=== PATIENT | female | born 1975 | race Caucasian/White ===

== ENCOUNTER 2019-11-15 19:13 | Emergency (ER) | payer OTHER ==
--- NOTE | 2019-11-15 20:53 | ER Document Report ---
ED Medical Screen (RME) - General Chief Complaint: Leg Pain Stated Complaint: LEFT CALF INJURY/PAIN Time Seen by Provider: 11/15/19 20:50 Primary Care Provider: NICHOLE BENITO MD [Primary Care Provider] - Follow up as needed TRAVEL OUTSIDE OF THE [place] IN LAST 30 DAYS: No - HPI Notes: 11/15/19 20:52 Patient is a 44-year-old female no significant past medical history presents complaining of left calf pain that began suddenly around 6:30 PM today. Patient states that she was in a car for [address] and 10 hours back and when she started to try to walk this evening she felt a pop in her calf. I have treated and performed a rapid initial assessment of this patient. A comprehensive ED assessment and evaluation of the patient, analysis of test results and completion of medical decision making process will be conducted by additional ED providers. PHYSICAL EXAMINATION: GENERAL: Well-appearing, well-nourished and in no acute distress. A&Ox4. Answers questions appropriately. Left leg: There is significant tenderness noted to palpation of the calf. No obvious bruising or redness noted. - Related Data Allergies/Adverse Reactions: No Known Allergies Allergy (Verified 10/14/14 02:21) Past Medical History - Past Medical History Cardiac Medical History: Denies: Hx Coronary Artery Disease, Hx Heart Attack, Hx Hypertension Pulmonary Medical History: Reports: Hx Bronchitis, Hx Pneumonia Denies: Hx Asthma, Hx COPD Neurological Medical History: Denies: Hx Cerebrovascular Accident, Hx Seizures Musculoskeltal Medical History: Denies Hx Arthritis Past Surgical History: Denies: Hx Hysterectomy, Hx Pacemaker - Immunizations Hx Diphtheria, Pertussis, Tetanus Vaccination: Yes - more 10 years Physical Exam - Vital signs Vitals: Temp Pulse Resp BP Pulse Ox 98.2 F 100 16 139/94 H 99 11/15/19 19:27 11/15/19 19:27 11/15/19 19:27 11/15/19 19:27 11/15/19 19:27 Course - Vital Signs Vital signs: Temp Pulse Resp BP Pulse Ox 98.2 F 100 16 139/94 H 99 11/15/19 19:27 11/15/19 19:27 11/15/19 19:27 11/15/19 19:27 11/15/19 19:27 Doctor's Discharge - Discharge Referrals: NICHOLE BENITO MD [Primary Care Provider] - Follow up as needed
--- NOTE | 2019-11-15 23:29 | RADIOLOGY REPORT (SQ) ---
EXAM DESCRIPTION: US EXTREMITY VEINS UNILATERAL COMPLETED DATE/TME: 11/15/2019 20:52 CLINICAL HISTORY: 44 years Female, left calf pain Comparison: None. LIMITATIONS: None. FINDINGS: Color doppler sonogram and compression maneuvers throughout the deep venous system of the left lower extremity show no evidence of thrombus including evaluation of the common femoral vein, superficial femoral vein, popliteal vein, posterior tibial vein, and peroneal vein. No deep venous thrombosis of the contralateral rightcommon femoral vein. IMPRESSION: No DVT of the left lower extremity.
[2019-11-15] MEDS ORDERED: IBUPROFEN 600 MG TABLET PO ONE (23:45)
--- NOTE | 2019-11-15 23:48 | ER Document Report ---
ED General - General Chief Complaint: Leg Pain Stated Complaint: LEFT CALF INJURY/PAIN Time Seen by Provider: 11/15/19 20:50 Primary Care Provider: NICHOLE BENITO MD [PEDIATRICS] - Follow up as needed TRAVEL OUTSIDE OF THE [place] IN LAST 30 DAYS: No - HPI Notes: 44-year-old female with a chief complaint of left calf pain. Patient is generally in good health taking no long-term medications and reporting no allergies. She made a 10-hour automobile trip within the last 24 hours. Patient denies any past history of thromboembolic disease. States that she had gotten out of the car and was showing her kids some kind of a dance move when she came down hard on her left lower extremity and felt immediate searing pain in the posterior calf area. She is been unable to bear weight since then. - Related Data Allergies/Adverse Reactions: No Known Allergies Allergy (Verified 10/14/14 02:21) Home Medications: ADDERALL Past Medical History - Social History Smoking Status: Never Smoker Family History: Reviewed & Not Pertinent Patient has suicidal ideation: No Patient has homicidal ideation: No - Past Medical History Cardiac Medical History: Denies: Hx Coronary Artery Disease, Hx Heart Attack, Hx Hypertension Pulmonary Medical History: Reports: Hx Bronchitis, Hx Pneumonia Denies: Hx Asthma, Hx COPD Neurological Medical History: Denies: Hx Cerebrovascular Accident, Hx Seizures Musculoskeletal Medical History: Denies Hx Arthritis Past Surgical History: Reports: Hx Orthopedic Surgery - R wrist. Denies: Hx Hysterectomy, Hx Pacemaker - Immunizations Hx Diphtheria, Pertussis, Tetanus Vaccination: Yes - more 10 years Review of Systems - Review of Systems Notes: Review of systems Constitutional: Negative for fever. HENT: Negative for sore throat. Eyes: Negative for visual changes. Cardiovascular: Negative for chest pain. Respiratory: Negative for shortness of breath. Gastrointestinal: Negative for abdominal pain, vomiting or diarrhea. Genitourinary: Negative for dysuria. Musculoskeletal: As per HPI. Skin: Negative for rash. Neurological: Negative for headaches, weakness or numbness. 10 point ROS negative except as marked above and in HPI. Physical Exam - Vital signs Vitals: Temp Pulse Resp BP Pulse Ox 98.2 F 100 16 139/94 H 99 11/15/19 19:27 11/15/19 19:27 11/15/19 19:27 11/15/19 19:27 11/15/19 19:27 - Notes Notes: GENERAL: Well-developed well-nourished appearing in no moderate discomfort. SKIN: Good turgor no rashes. HEAD: Normocephalic atraumatic. EYES: PERRLA. EOMI. Conjunctivae and sclerae clear. EARS: CANALS AND TMS CLEAR. NOSE: CLEAR. MOUTH: Moist mucosa. Good dentition. No stridor or edema. No drooling. NECK: Supple. No masses or thyromegaly. No adenopathy. Carotids 2+ without bruits. No JVD. BACK: Symmetrical without tenderness. CHEST: Respirations unlabored. Breath sounds clear and symmetrical. HEART: Regular rhythm. No murmur gallop or rub. ABDOMEN: Soft nontender without masses, organomegaly or rebound. Bowel sounds normally active. No bruits. GENITALIA: Deferred. EXTREMITIES: Tender over left mid calf posteriorly. No warmth redness or palpable cords. Christopher test is normal. There is no palpable discontinuity on palpation over the Achilles tendon. Cap refill less than 1.5 seconds. Dorsalis pedis and posterior tibial pulses 3+ and symmetrical. NEUROLOGICAL: GCS 15. Alert and oriented x3. Normal gait. Fluent speech. Cranial nerves II through XII intact. Sensorimotor and cerebellar normal. Normal tone. PSYCHIATRIC: Appropriate affect.43 which here for chest pain Course - Re-evaluation Re-evalutation: 11/15/19 23:52 Clinically I think the patient has a tear of her mid soleus muscle. We will place her in a short leg OCL splint in dorsiflexion give her crutches ice elevation and also place her on naproxen at home. Follow-up with orthopedics and I explained that she may require physical therapy. - Vital Signs Vital signs: Temp Pulse Resp BP Pulse Ox 98.2 F 100 16 139/94 H 99 11/15/19 19:27 11/15/19 19:27 11/15/19 19:27 11/15/19 19:27 11/15/19 19:27 - Diagnostic Test Radiology reviewed: Reports reviewed Radiology results interpreted by me: 11/15/19 23:51 Ultrasound negative for DVT per radiologist. Discharge - Discharge Clinical Impression: Soleus muscle tear left lower extremity Condition: Stable Disposition: HOME, SELF-CARE Additional Instructions: Ice, elevation and crutches. Follow-up with orthopedics and you may require physical therapy. Prescriptions: Naproxen 500 mg PO BID PRN 7 Days #14 tablet PRN Reason: Referrals: NICHOLE BENITO MD [PEDIATRICS] - Follow up as needed SO HEBERT JR, DO [ACTIVE PROVISIONAL STAFF] - Follow up as needed
[2019-11-16 00:41] VITALS: BP 120/77
== END 2019-11-16 00:39 | disposition home or self-care (01) ==
LOC: ER 19:13
DX: S86.112A Strain of other muscle(s) and tendon(s) of posterior muscle group at lower leg level, left leg, initial encounter (principal); M79.661 Pain in right lower leg; X58.XXXA Exposure to other specified factors, initial encounter; Y93.41 Activity, dancing; Z79.899 Other long term (current) drug therapy
CPT/HCPCS: 93971; 99283